=== PATIENT | female | born 1955 | race Caucasian/White ===

== ENCOUNTER → 2018-04-04 | Outpatient (CLI) | payer OTHER | LOC: COL.RAD 13:16 | DX: M16.11 Unilateral primary osteoarthritis, right hip (principal) | CPT/HCPCS: J3301; Q9967 ==

== ENCOUNTER → 2018-09-14 | Outpatient (CLI) | payer MEDICARE, BC ==
[2018-09-14 14:16] LABS: HIV 1/2 Antibodies Non-Reactive; HIV-1p24 Antigen Non-Reactive
== END ==
LOC: COL.LAB 13:17
PROVIDERS: Orthopaedic Surgery
DX: Z01.812 Encounter for preprocedural laboratory examination (principal); M16.11 Unilateral primary osteoarthritis, right hip

== ENCOUNTER → 2019-06-11 | Outpatient (CLI) | payer MEDICARE, BC | LOC: COL.PUL 06-06 13:00 | DX: J45.21 Mild intermittent asthma with (acute) exacerbation (principal); Z87.891 Personal history of nicotine dependence ==

== ENCOUNTER → 2019-06-26 | Outpatient (CLI) | payer MEDICARE, BC | LOC: COL.RAD 10:33 | DX: Z01.812 Encounter for preprocedural laboratory examination (principal); M46.94 Unspecified inflammatory spondylopathy, thoracic region; R05 Cough | CPT/HCPCS: Q9967 ==

== ENCOUNTER → 2021-09-23 | Outpatient (CLI) | payer MEDICARE, BC | LOC: ZCOL.LAB 16:27 | DX: N39.0 Urinary tract infection, site not specified (principal) ==